=== PATIENT | female | born 1945 ===

== ENCOUNTER 2018-12-22 07:51 | Day surgery (SDC) | payer MEDICARE, BC ==
[~2018-12-22] VITALS: Ht 172.7 cm; Wt 82.3 kg
[~2018-12-22 07:51] MED LIST: CALCIUM; HYDR-4353 PO; MULT1TAB74 PO
[2018-12-22 08:09] VITALS: BP 117/73
[2018-12-22] MEDS ORDERED: OXYC-658 PO (08:29)
[2018-12-22] MEDS ORDERED: HYDR-4353 PO (08:29)
[2018-12-22] MEDS ORDERED: LYR75C PO (08:29)
[2018-12-22 08:49] VITALS: BP 125/82
[2018-12-22 10:00] VITALS: BP 117/75
== END 2018-12-22 10:50 | disposition home or self-care (01) ==
LOC: SSTAY O 07:51
PROVIDERS: ATTEND Radiology Diagnostic Radiology
DX: J90 Pleural effusion, not elsewhere classified (principal); Z96.653 Presence of artificial knee joint, bilateral; Z98.890 Other specified postprocedural states; Z79.899 Other long term (current) drug therapy; Z87.891 Personal history of nicotine dependence; Z91.09 Other allergy status, other than to drugs and biological substances; Z88.8 Allergy status to other drugs, medicaments and biological substances
CPT/HCPCS: 32555; 71045